=== PATIENT | female | born 1970 | race Caucasian/White ===

== ENCOUNTER 2017-08-18 19:08 | Day surgery (SDC) | payer BC, OTHER ==
[~2017-08-18] VITALS: Ht 149.9 cm; Wt 70.0 kg
[~2017-08-18 19:08] MED LIST: ACET325T14 PO; ALPR1TAB6 PO; IBUP-11 PO; NAPR220T77 PO
[2017-08-18 19:59] LABS: ASPARTATE AMINO TRANSFERASE 9 U/L (15-37); BLOOD UREA NITROGEN 7 mg/dL (7-18)
[2017-08-18] MEDS ORDERED: SODIUM CHLORIDE FLUSH 10ML SYR IVF ONE (20:00)
[2017-08-18] MEDS ORDERED: ONDANSETRON 2MG/ML, 2ML IVPush ONE (20:00)
[2017-08-18] MEDS ORDERED: MORPHINE SULFATE 4 MG/ML, 1ML IVPush PRN (20:00)
[2017-08-18 20:02] LABS: PATH.CAST-FLAG NOT PRESENT; SPERM-FLAG NOT PRESENT; SRC-FLAG NOT PRESENT; XTAL-FLAG NOT PRESENT; YLC-FLAG NOT PRESENT
[2017-08-18 20:04] LABS: HEMATOCRIT 41.8 % (34.6-47.8); HEMOGLOBIN 13.6 g/dL (11.7-16.4); WHITE BLOOD COUNT 7.1 x10^3/uL (3.4-10)
[2017-08-18] MEDS ORDERED: SODIUM CHLORIDE 0.9% 1,000ML IVBOLUS ONE (21:30)
[2017-08-18] MEDS ORDERED: BUPIVACAINE/PF 0.5% ONE (21:34)
[2017-08-18] MEDS ORDERED: EPINEPHRINE 1 MG/ML, 1ML ONE (21:35)
[2017-08-18 21:47] LABS: HCG UR LOT HCG7030192
[2017-08-18] MEDS ORDERED: FENTANYL PF 100 MCG/2ML ONE ×2 (21:56)
[2017-08-18] MEDS ORDERED: MIDAZOLAM 1 MG/ML, 2ML ONE (21:56)
[2017-08-18 21:57] LABS: HCG UR OBC PASS
[2017-08-18] MEDS ORDERED: ONDANSETRON 2MG/ML, 2ML ONE (22:26)
[2017-08-18] MEDS ORDERED: GLYCOPYRROLATE 0.2MG/1ML, 5ML ONE (22:26)
[2017-08-18] MEDS ORDERED: NEOSTIGMINE 1 MG/ML, 10ML ONE (22:26)
[2017-08-18] MEDS ORDERED: PROPOFOL 10 MG/ML, 20ML ONE (22:26)
[2017-08-18] MEDS ORDERED: DEXAMETHASONE 4 MG/ML, 1ML ONE (22:26)
[2017-08-18] MEDS ORDERED: ROCURONIUM 10 MG/ML,10ML ONE (22:26)
[2017-08-18] MEDS ORDERED: SUCCINYLCHOLINE 20 MG/ML, 10ML ONE (22:26)
[2017-08-18] MEDS ORDERED: CEFAZOLIN 1,000 MG ONE (22:26)
[2017-08-18] MEDS ORDERED: BUPIVACAINE/PF 0.5% INFIL ONE (22:28)
[2017-08-18] MEDS ORDERED: EPINEPHRINE 1 MG/ML, 1ML INFIL ONE (22:28)
[2017-08-18] MEDS ORDERED: METOPROLOL 1 MG/ML, 5ML IV PRN (22:30)
[2017-08-18] MEDS ORDERED: EPHEDRINE 50 MG/ML, 1ML IVPush PRN (22:30)
[2017-08-18] MEDS ORDERED: DIAZEPAM 5 MG/ML, 2ML IVPush PRN (22:30)
[2017-08-18] MEDS ORDERED: PROMETHAZINE 25 MG/ML, 1ML IV PRN (22:30)
[2017-08-18] MEDS ORDERED: OXYcodone 5 MG/5 ML ORAL.SOL UDC PO PRN (22:30)
[2017-08-18] MEDS ORDERED: MIDAZOLAM 1 MG/ML, 2ML IV PRN (22:30)
[2017-08-18] MEDS ORDERED: LABETALOL 5MG/ML, 20ML IV PRN (22:30)
[2017-08-18] MEDS ORDERED: MEPERIDINE/PF 25MG/0.5ML IVPush PRN (22:30)
[2017-08-18] MEDS ORDERED: ALBUTEROL SULFATE 2.5 MG/3 ML NPPB PRN (22:30)
[2017-08-18] MEDS ORDERED: ONDANSETRON 2MG/ML, 2ML IVPush PRN (22:30)
[2017-08-18] MEDS ORDERED: HYDROcodone/APAP 7.5-325MG/15ML UDC PO PRN (22:30)
[2017-08-18] MEDS ORDERED: ACETAMINOPHEN 325 MG TABLET PO PRN (22:30)
[2017-08-18] MEDS ORDERED: FENTANYL PF 100 MCG/2ML IV PRN (22:30)
[2017-08-18] MEDS ORDERED: hydrALAzine 20 MG/ML, 1ML IV PRN (22:30)
[2017-08-18] MEDS: HYDROmorphone 1 MG/ML, 1ML IV PRN ×2 (23:05→23:14)
[2017-08-18] MEDS ORDERED: HYDROmorphone 1 MG/ML, 1ML ONE (23:05)
[2017-08-18] MEDS ORDERED: LACTATED RINGERS 1,000 ML IV SCH (23:45)
[2017-08-18] MEDS ORDERED: OXYC-302 PO (23:52)
[2017-08-18] MEDS ORDERED: ONDA4TAB10 PO (23:53)
[2017-08-19 00:07] VITALS: BP 137/87
[2017-08-19] MEDS ORDERED: ONDANSETRON 2MG/ML, 2ML IV PRN (00:30)
[2017-08-19] MEDS ORDERED: morphine SULFATE 10 MG/ML, 1ML IV PRN (00:30)
[2017-08-19] MEDS ORDERED: OXYcodone/APAP 5/325MG TABLET PO PRN (00:30)
== END 2017-08-19 02:14 | disposition home or self-care (01) ==
LOC: ED 19:52 → EDIP 21:15 → UNDOADMIN 21:15 → SDC 21:15 → EDIP 23:36 → 4NOR 23:36 → SDC 08-19 02:14 → UNDODISIN 08-19 02:14
PROVIDERS: ATTEND Surgery
DX: K80.12 Calculus of gallbladder with acute and chronic cholecystitis without obstruction (principal); E78.5 Hyperlipidemia, unspecified; F41.9 Anxiety disorder, unspecified; Z85.3 Personal history of malignant neoplasm of breast; Z90.11 Acquired absence of right breast and nipple
CPT/HCPCS: 36415; 47562; 76700; 80053; 81001; 81025; 83690; 85025; 87086; 88304; 99285; J0171; J0330; J0690; J1100; J1170; J2250; J2405; J2704; J2710; J3010; J3490; J7030